=== PATIENT | male | born 1975 | race Caucasian/White ===

== ENCOUNTER 2018-07-12 15:15 | Emergency (ER) | payer OTHER ==
[~2018-07-12] VITALS: Ht 175.3 cm; Wt 90.0 kg
[2018-07-12] MEDS ORDERED: LORazepam 2 MG TABLET PO ONE (17:30)
[2018-07-12 18:16] VITALS: BP 136/80
== END 2018-07-12 19:03 | disposition home or self-care (01) ==
LOC: EMS 15:17
DX: F10.20 Alcohol dependence, uncomplicated (principal); F15.10 Other stimulant abuse, uncomplicated